=== PATIENT | female | born 2000 | race African-American/Black ===

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

== ENCOUNTER 2020-02-04 03:19 | Emergency (ER) | payer MEDICAID ==
[~2020-02-04] VITALS: Ht 172.7 cm; Wt 100.0 kg
[2020-02-04 03:38] VITALS: BP 100/60
== END 2020-02-04 09:55 | disposition home or self-care (01) ==
LOC: ER 03:19 → EDSTATUS 03:19 → ER 09:55
DX: O99.89 Other specified diseases and conditions complicating pregnancy, childbirth and the puerperium (principal); Z3A.30 30 weeks gestation of pregnancy; Z59.0 Homelessness
CPT/HCPCS: 99281; 99283

== ENCOUNTER 2020-03-03 20:39 | Observation (INO) | payer MEDICAID ==
[~2020-03-03] VITALS: Ht 152.4 cm; Wt 90.7 kg
== END 2020-03-03 23:30 | disposition home or self-care (01) ==
LOC: ER 20:39 → 8 EST LDRP 21:01
PROVIDERS: ADMIT Obstetrics & Gynecology; ATTEND Obstetrics & Gynecology
DX: O99.89 Other specified diseases and conditions complicating pregnancy, childbirth and the puerperium (principal); R42 Dizziness and giddiness; Z3A.34 34 weeks gestation of pregnancy
CPT/HCPCS: 99281; G0378

== ENCOUNTER 2020-03-03 23:44 | Emergency (ER) | payer OTHER ==
[~2020-03-03] VITALS: Ht 165.1 cm; Wt 91.0 kg
[2020-03-04 13:04] VITALS: BP 120/78
== END 2020-03-04 13:05 | disposition home or self-care (01) ==
LOC: EDUNIT# 23:44 → ER 23:44
DX: S93.491A Sprain of other ligament of right ankle, initial encounter (principal); X58.XXXA Exposure to other specified factors, initial encounter; Y93.89 Activity, other specified; Y92.89 Other specified places as the place of occurrence of the external cause; Y99.8 Other external cause status; D64.9 Anemia, unspecified; F32.9 Major depressive disorder, single episode, unspecified
CPT/HCPCS: 99281

== ENCOUNTER 2020-04-05 05:10 | Emergency (ER) | payer OTHER ==
[~2020-04-05] VITALS: Ht 165.1 cm; Wt 73.0 kg
[2020-04-05 05:28] VITALS: BP 109/71
[2020-04-05] MEDS ORDERED: ACETAMINOPHEN 325MG TABLET PO STA (06:15)
== END 2020-04-05 07:18 | disposition left against medical advice (07) ==
LOC: ER 05:10 → EDSTATUS 05:10 → ER 07:18
DX: R42 Dizziness and giddiness (principal); R11.0 Nausea; F15.10 Other stimulant abuse, uncomplicated; F19.10 Other psychoactive substance abuse, uncomplicated; Z59.0 Homelessness
CPT/HCPCS: 99281; 99283

== ENCOUNTER 2020-04-23 00:23 | Emergency (ER) | payer OTHER ==
[~2020-04-23] VITALS: Ht 167.6 cm; Wt 82.0 kg
[2020-04-23 00:43] VITALS: BP 114/77
[2020-04-23] MEDS ORDERED: ACETAMINOPHEN 325MG TABLET PO ONE (02:45)
== END 2020-04-23 04:17 | disposition home or self-care (01) ==
LOC: ER 00:23
DX: M25.512 Pain in left shoulder (principal); Z59.0 Homelessness
CPT/HCPCS: 99282

== ENCOUNTER 2020-05-24 20:34 | Emergency (ER) | payer OTHER ==
[~2020-05-24] VITALS: Ht 157.5 cm; Wt 60.0 kg
[2020-05-24] MEDS ORDERED: SODIUM CHLORIDE 0.9% 1,000 ML IV ONE (21:14)
[2020-05-24] MEDS ORDERED: HALOPERIDOL LACTATE 5MG/ML VIAL IM STA (21:14)
[2020-05-24] MEDS ORDERED: LORAZEPAM 2MG/ML CPJ IM STA (21:14)
[2020-05-24 22:05] LABS: BASOPHILS % 0.8 % (0.0-2.0); EOSINOPHILS % 2.3 % (0.0-5.0); HEMATOCRIT. 30.7 % (36.0-48.0); LYMPHOCYTES % 28.5 % (20.0-50.0); MEAN CORPUSCULAR HEMOGLOBIN 27.7 pg (28.0-32.0); MEAN CORPUSCULAR VOLUME 84.7 fL (81.0-99.0); MEAN PLATELET VOLUME 7.7 fl (7.4-10.4); MONOCYTES % 7.2 % (2.0-8.0); NEUTROPHILS % 61.2 % (40.0-76.0); PLATELET 429 x1000/uL (130-400); RED BLOOD CELL COUNT 3.63 mill/uL (4.2-5.4); RED CELL DISTRIBUTION WIDTH 17.4 % (11.6-14.6)
[2020-05-24 22:13] LABS: CHLORIDE 110 mEq/L (98-107)
[2020-05-24 22:17] LABS: ETHANOL BLOOD < 10 mg/dL
[2020-05-24 22:19] LABS: HCG SCREEN NEGATIVE
[2020-05-25] MEDS ORDERED: CEFTRIAXONE 1 G PREMIX 50 ML IV ONE (02:30)
[2020-05-25 02:31] LABS: *BARBITURATES SCREEN URINE NEGATIVE (NEGATIVE); *BENZODIAZEPINES SCREEN URINE NEGATIVE (NEGATIVE); *COCAINE SCREEN URINE NEGATIVE (NEGATIVE); CANNABINOID URINE SCREEN NEGATIVE (NEGATIVE); METHADONE URINE SCREEN NEGATIVE (NEGATIVE); OPIATES URINE SCREEN NEGATIVE (NEGATIVE); PHENCYCLIDINE URINE SCREEN NEGATIVE (NEGATIVE)
[2020-05-25 02:34] LABS: *AMPHETAMINES SCREEN URINE PRESUMTIVE POSITIVE (NEGATIVE)
[2020-05-25] MEDS ORDERED: IOHEXOL-350 100 ML BOTTLE ONE ×2 (03:28→05:14)
[2020-05-25 03:41] LABS: CLARITY URINE CLEAR (CLEAR); COLOR URINE YELLOW (YELLOW); KETONES URINE 1+ (NEGATIVE); PROTEIN URINE 1+ (NEGATIVE); SPECIFIC GRAVITY URINE 1.021 (1.005-1.030)
[2020-05-25 03:42] LABS: LEUKOCYTE ESTERASE URINE 1+ (NEGATIVE); NITRITE URINE NEGATIVE (NEGATIVE); OCCULT BLOOD URINE NEGATIVE (NEGATIVE)
[2020-05-25 08:00] VITALS: BP 126/78
== END 2020-05-25 10:31 | disposition home or self-care (01) ==
LOC: ER 20:34
DX: F15.129 Other stimulant abuse with intoxication, unspecified (principal); I72.0 Aneurysm of carotid artery; I70.0 Atherosclerosis of aorta; Z71.51 Drug abuse counseling and surveillance of drug abuser; Z78.1 Physical restraint status
CPT/HCPCS: 36415; 70450; 70496; 80053; 80305; 80307; 80320; 80329; 81003; 82962; 84443; 84703; 85025; 93005; 96361; 96365; 96372; 99285; J0696; J1630; J2060; J7030; Q9967; G0480